=== PATIENT | female | born 1945 | race Caucasian/White ===

== ENCOUNTER 2019-06-25 19:17 | Emergency (ER) | payer MEDICARE, OTHER ==
[2019-06-25] MEDS ORDERED: EPINEPHRINE 1 MG/ML 1 ML VIAL IM ONE (19:21)
[2019-06-25] MEDS ORDERED: diPHENhydraMINE IV* 50 MG/ML 1 ml VIAL (BENADRYL) SLOW PUSH ONE (19:21)
[2019-06-25] MEDS ORDERED: Dexamethasone IV* 4 MG/ML 1 ML (4 MG) IV SLOW PU ONE (19:22)
--- NOTE | 2019-06-25 19:27 | ED ---
Allergic Reaction/Systemic - HPI Summary HPI Summary: Pt is a 73 y/o F presenting to the ED with a chief complaint of an insect sting. She states that she was drinking her beer when a yellowjacket stung her tongue. She currently complains of tongue edema. She denies SOB or hives. She states she is not usually allergic to bees. - History of Current Complaint Chief Complaint: EDAllergicReaction Hx Obtained From: Patient Onset/Duration: Gradual Onset, Started minutes ago, Still Present Timing: Constant, Lasting Minutes Severity Initially: Mild Severity Currently: None Pain Intensity: 0 Pain Scale Used: 0-10 Numeric Location: Diffuse Associated Signs And Symptoms: Positive: Negative - Allergies/Home Medications Allergies/Adverse Reactions: Allergies Allergy/AdvReac Type Severity Reaction Status Date / Time MS Penicillins [Penicillins] Allergy Severe Rash Verified 03/18/13 14:03 MS Sulfa Drugs [Sulfa Drugs] Allergy Severe Rash Verified 03/18/13 14:03 PMH/Surg Hx/FS Hx/Imm Hx Previously Healthy: Yes Endocrine/Hematology History: Reports: Hx Thyroid Disease Denies: Hx Diabetes Cardiovascular History: Denies: Hx Angina, Hx Hypertension, Hx Myocardial Infarction Respiratory History: Denies: Hx Asthma, Hx Chronic Obstructive Pulmonary Disease (COPD) GI History: Denies: Hx Ulcer Musculoskeletal History: Denies: Hx Scoliosis Neurological History: Reports: Other Neuro Impairments/Disorders Denies: Hx Headaches - Surgical History Surgery Procedure, Year, and Place: FX ANKLE, ACOUSTIC NEUROMA Infectious Disease History: No Infectious Disease History: Denies: Hx Human Immunodeficiency Virus (HIV), Traveled Outside the [place] in Last 30 Days - Family History Known Family History: Negative: Cardiac Disease - Social History Alcohol Use: Occasionally Hx Substance Use: No Substance Use Type: Reports: None Hx Tobacco Use: Yes Smoking Status (MU): Former Smoker - quit in 1965 Review of Systems Positive: Other - tongue edema Negative: Shortness Of Breath Negative: Other - hives All Other Systems Reviewed And Are Negative: Yes Physical Exam - Summary Physical Exam Summary: Appearance: Well-appearing, Well-nourished, lying in bed comfortably Skin: Warm, dry, no obvious rash Eyes: sclera anicteric, no conjunctival pallor ENT: Lingual edema confined to anterior tongue, able to see tonsillar pillars and the back of the tongue. There is no other sign of upper airway compromise. Neck: Supple, nontender Respiratory: Clear to auscultation, no signs of respiratory distress Cardiovascular: Normal S1, S2. No murmurs. Normal distal pulses in tibial and radial bilaterally. Abdomen: Soft, nontender, normal active bowel sounds present Musculoskeletal: Normal, Strength/ROM Intact Neurological: A&Ox3, awake and alert, mentation is normal, speech is fluent and appropriate Psychiatric: affect is normal, does not appear anxious or depressed Triage Information Reviewed: Yes Vital Signs On Initial Exam: Initial Vitals Temp Pulse Resp BP Pulse Ox 97.5 F 93 20 181/118 96 06/25/19 19:18 06/25/19 19:18 06/25/19 19:18 06/25/19 19:18 06/25/19 19:18 Vital Signs Reviewed: Yes Diagnostics - Vital Signs Vital Signs Temp Pulse Resp BP Pulse Ox 06/25/19 19:18 97.5 F 93 20 181/118 96 - Laboratory Lab Statement: Any lab studies that have been ordered have been reviewed, and results considered in the medical decision making process. Re-Evaluation - Re-Evaluation 1st re-eval Re-Evaluation Time: 20:42 Change: Improved Comment: Pt is much improved, her voice currently sounds normal and she is stable. Allergic Reaction Course/Dx - Course Course Of Treatment: Pt is a 73 y/o F presenting to the ED with a chief complaint of an insect sting. She states that she was drinking her beer when a yellowjacket stung her tongue. She currently complains of tongue edema. She denies SOB or hives. She states she is not usually allergic to bees. On exam, there is lingual edema confined to anterior tongue, able to see tonsillar pillars and the back of the tongue. There is no other sign of upper airway compromise. In the ED course, the pt was given 0.3mg of Epinephrine IM, 8mg Decadron IV, 50mg Benadryl IV, as well as 8mg Zofran IV for her nausea, and 1L of fluids. On re-evaluation, the pt is much improved and will be d/c'ed with dx of bee sting to the tongue. She is stable and agreeable with this plan. - Diagnoses Provider Diagnoses: Bee sting Discharge ED - Sign-Out/Discharge Documenting (check all that apply): Patient Departure Patient Received Moderate/Deep Sedation with Procedure: No - Discharge Plan Condition: Stable Disposition: HOME Patient Education Materials: Insect Bite or Sting (ED) Referrals: Christopher Steve MD [Primary Care Provider] - 2 Days (if needed) Additional Instructions: Keep benadryl on hand and take as needed if the swelling seems to be recurring - Billing Disposition and Condition Condition: STABLE Disposition: Home - Attestation Statements Document Initiated by [employer]: Yes Documenting Scribe: Claudia Fernandez Provider For Whom Olivia is Documenting (Include Credential): Dario Henry MD. Scribe Attestation: Claudia Henson, danyed for Dario Henry MD. on 06/26/19 at 0410. Scribe Documentation Reviewed: Yes Provider Attestation: The documentation as recorded by the Claudia harris accurately reflects the service I personally performed and the decisions made by Dario perez MD. Status of Scribe Document: Viewed
[2019-06-25] MEDS ORDERED: NS 0.9% 1000 ML** 1,000 ML IV ONE (20:02)
[2019-06-25] MEDS ORDERED: Ondansetron INJ* 2 MG/ML VIAL IV ONE (20:02)
[2019-06-25 20:55] VITALS: BP 132/85
== END 2019-06-25 20:53 | disposition home or self-care (01) ==
LOC: ED 19:17
DX: T63.441A Toxic effect of venom of bees, accidental (unintentional), initial encounter (principal); Y92.9 Unspecified place or not applicable; E07.9 Disorder of thyroid, unspecified; Z87.891 Personal history of nicotine dependence; Z79.899 Other long term (current) drug therapy; Z88.0 Allergy status to penicillin; Z88.2 Allergy status to sulfonamides
CPT/HCPCS: 96361; 96372; 96374; 96375; 99282; J1100; J1200; J2405